=== PATIENT | female | born 1960 | race Caucasian/White ===

== ENCOUNTER 2016-11-19 06:35 | Emergency (ER) | payer BC ==
[~2016-11-19] VITALS: Ht 152.4 cm; Wt 63.8 kg
[2016-11-19 06:41] VITALS: TEMP 36.7; Ht 152.4 cm; Wt 63.8 kg
[2016-11-19] MEDS ORDERED: ONDANSETRON 8 MG/54 ML D5W IV STA (06:53)
[2016-11-19] MEDS ORDERED: PROCHLORPERAZINE 5 MG/ML 2 ML VIAL IV STA (06:53)
[2016-11-19] MEDS ORDERED: SODIUM CHLORIDE 0.9% 1000ML 1,000 ML IV STA ×2 (06:53)
[2016-11-19] MEDS ORDERED: KETOROLAC TROMETHAMINE 30 MG/ML VIAL IV STA (06:53)
[2016-11-19] MEDS ORDERED: MoRPHine SULFATE 10 MG/ML CARP/VIAL IV PRN (07:00)
[2016-11-19] MEDS ORDERED: DEXAMETHASONE SOD INJ 10 MG/ML VIAL IV ONE (07:00)
[2016-11-19] MEDS ORDERED: MoRPHine SULFATE 2 MG/ML CARP ONE (07:06)
[2016-11-19] MEDS ORDERED: MoRPHine SULFATE 4 MG/ML 1 ML CARP\\VIAL ONE (07:06)
[2016-11-19 07:43] LABS: BASO % 0.2 %; BASO ABS # 0.03 K/uL (0-0.2); COMPLETE YES; EOS % 0.1 %; HEMATOCRIT 41.9 % (37-47); IG% 0.5 %; LYMPH % 26.2 %; LYMPH ABS # 3.67 K/uL (1.2-3.4); MEAN CELL VOLUME 89.3 fL (80-100); MEAN CORPUSCULAR HEMOGLOBIN 31.8 pg (25-34); MEAN CORPUSCULAR HGB CONC 35.6 g/dl (32-36); MEAN PLATELET VOLUME 9.9 fL (7.4-10.4); MONO % 5.6 %; NEUT % 67.4 %; PLATELET COUNT 371 K/uL (130-400); RED BLOOD COUNT 4.69 M/uL (4.2-5.4)
[2016-11-19 07:51] VITALS: O2SAT 94
[2016-11-19 08:11] LABS: BUN/CREATININE RATIO 16.3 (10-20); C-REACTIVE PROTEIN 0.4 mg/dl (0-0.29); CALCIUM 9.4 mg/dl (8.5-10.1); CREATININE 0.97 mg/dl (0.60-1.20); POTASSIUM 3.5 mmol/L (3.5-5.1)
[2016-11-19 08:32] LABS: LYME DISEASE AB IGG NEG (NEG); LYME DISEASE AB IGM NEG (NEG)
[2016-11-19] MEDS ORDERED: FRCT/ PO (10:22)
[2016-11-19] MEDS ORDERED: ONDA4TAB10 SL (10:25)
--- NOTE | 2016-11-19 10:26 | EMERGENCY ROOM VISIT NOTE ---
History Report prepared by Eugenia: Marilia Sims Under the Supervision of: Dr. Cj Dorantes D.O. First contact with patient: 06:44 Chief Complaint: HEADACHE Stated Complaint: SEVERE HEADACHE AND VOMITING History of Present Illness The patient is a 56 year old female who presents to the Emergency Room with complaints of persistent frontal headache that started one week ago. She is also experiencing some photophobia, neck pain, and sneezing but denies urinary symptoms and weakness. The patient's states that she was seen in the ED 4 days ago for the same symptoms. She received a CT and MRI, which were both inconclusive. The MRI showed a potential subarachnoid hemorrhage. The patient was admitted to the hospital then transferred to [facility]. She was discharged from [facility] 2 days ago after resolution of her symptoms. Per the patient's , the staff at [facility] re-read her MRI and performed a lumbar puncture, but nothing conclusive was found. The patient was seen by the neurologist and neurosurgeons at [facility], but her symptoms resolved so they sent her home. The patient's states that the patient's symptoms seemed to improve with fluids, steroids, and pain medicine as needed. The patient was sent home with steroids and antacids. The patient's states that once they got home, the headache returned almost immediately. This morning, the patient began to experience nausea and vomiting again so they decided to come back into the ED. The patient took Tylenol this morning but she vomited after taking it. The patient's states that they have gas heating in their house and that they just got new rugs one month ago. Source of History: patient Onset: one week ago Position: head (frontal) Quality: other (headache) Timing: other (persistent) Associated Symptoms: + neck pain, No urinary symptoms, No weakness Note: photophobia, sneezing Review of Systems See HPI for pertinent positives & negatives. A total of 10 systems reviewed and were otherwise negative. Past Medical & Surgical Medical Problems: (1) A-fib (2) Dyslipidemia (3) Headache Family History FH: heart disease Social History Smoking Status: Never Smoker Drug Use: none Marital Status: Housing Status: lives with family Current/Historical Medications Scheduled Acetamin/Butalbital/Caffeine (Fioricet), 1 TAB PO Q6 Ondasetron Odt (Zofran Odt), 4 MG SL Q6H Allergies Coded Allergies: Amoxicillin (Verified Allergy, Unknown, RASH, 11/19/16) Physical Exam Vital Signs Date Time Temp Pulse Resp B/P Pulse Ox O2 Delivery O2 Flow Rate FiO2 11/19/16 10:27 60 18 119/78 94 Room Air 11/19/16 09:08 64 18 120/80 96 Room Air 11/19/16 07:53 67 11/19/16 07:51 94 Room Air 11/19/16 07:51 69 20 145/92 94 Room Air 11/19/16 06:41 36.7 93 20 161/85 99 Room Air Physical Exam VITAL SIGNS: were reviewed as above. GENERAL:Non-toxic in appearance. SKIN: Warm dry and pink. HEAD: Normocephalic and atraumatic. OROPHARYNX: Is clear and moist NECK: Supple without lymphadenopathy or meningismus. LUNGS: clear. HEART: Regular rate and rhythm. ABDOMEN: Soft and nontender. EXTREMITIES: Warm and well perfused. NEUROLOGICALLY: Awake alert and oriented without focal deficit. Cranial nerves 2 -12 are intact. There is no pronator drift. Cerebellar testing is within normal limits. There is no nystagmus. There is no facial droop. Speech is clear. Vision is grossly normal. MUSCULOSKELETAL: Good muscle tone. No evidence of trauma. Medical Decision & Procedures Laboratory Results 11/19/16 07:30 Red Blood Count 4.69, Mean Corpuscular Volume 89.3, Mean Corpuscular Hemoglobin 31.8, Mean Corpuscular Hemoglobin Concent 35.6, Mean Platelet Volume 9.9, Neutrophils (%) (Auto) 67.4, Lymphocytes (%) (Auto) 26.2, Monocytes (%) (Auto) 5.6, Eosinophils (%) (Auto) 0.1, Basophils (%) (Auto) 0.2, Neutrophils # (Auto) 9.43, Lymphocytes # (Auto) 3.67, Monocytes # (Auto) 0.78, Eosinophils # (Auto) 0.02, Basophils # (Auto) 0.03 11/19/16 07:30 Test 11/19/16 07:20 11/19/16 07:30 Lyme Disease IgG Antibody NEG (NEG) Lyme Disease IgM Antibody NEG (NEG) Influenza Type A Antigen Neg for Influ A (NEG) Influenza Type B Antigen Neg for Influ B (NEG) White Blood Count 14.00 K/uL (4.8-10.8) Red Blood Count 4.69 M/uL (4.2-5.4) Hemoglobin 14.9 g/dL (12.0-16.0) Hematocrit 41.9 % (37-47) Mean Corpuscular Volume 89.3 fL (80-100) Mean Corpuscular Hemoglobin 31.8 pg (25-34) Mean Corpuscular Hemoglobin Concent 35.6 g/dl (32-36) Platelet Count 371 K/uL (130-400) Mean Platelet Volume 9.9 fL (7.4-10.4) Neutrophils (%) (Auto) 67.4 % Lymphocytes (%) (Auto) 26.2 % Monocytes (%) (Auto) 5.6 % Eosinophils (%) (Auto) 0.1 % Basophils (%) (Auto) 0.2 % Neutrophils # (Auto) 9.43 K/uL (1.4-6.5) Lymphocytes # (Auto) 3.67 K/uL (1.2-3.4) Monocytes # (Auto) 0.78 K/uL (0.11-0.59) Eosinophils # (Auto) 0.02 K/uL (0-0.5) Basophils # (Auto) 0.03 K/uL (0-0.2) RDW Standard Deviation 42.7 fL (36.4-46.3) RDW Coefficient of Variation 13.2 % (11.5-14.5) Immature Granulocyte % (Auto) 0.5 % Immature Granulocyte # (Auto) 0.07 K/uL (0.00-0.02) Erythrocyte Sedimentation Rate 35 mm/hr (0-21) Carboxyhemoglobin 0.0 % THgb Anion Gap 14.0 mmol/L (3-11) Est Creatinine Clear Calc Drug Dose 54.6 ml/min Estimated GFR () 76.2 Estimated GFR (Non- 65.8 BUN/Creatinine Ratio 16.3 (10-20) Calcium Level 9.4 mg/dl (8.5-10.1) Total Bilirubin 0.7 mg/dl (0.2-1) Direct Bilirubin 0.2 mg/dl (0-0.2) Aspartate Amino Transf (AST/SGOT) 25 U/L (15-37) Alanine Aminotransferase (ALT/SGPT) 49 U/L (12-78) Alkaline Phosphatase 74 U/L (45-117) C-Reactive Protein 0.40 mg/dl (0-0.29) Total Protein 8.8 gm/dl (6.4-8.2) Albumin 4.2 gm/dl (3.4-5.0) Lipase 196 U/L (73-393) Laboratory results as stated above per my review. Medications Administered Medications (Trade) Dose Ordered Sig/Leelee Route Start Time Stop Time Status Last Admin Dose Admin Sodium Chloride (Nss 1000ml) 1,000 ml @ 999 mls/hr Q1H1M STAT IV 11/19/16 06:53 11/19/16 07:53 DC 11/19/16 07:32 999 MLS/HR Ketorolac Tromethamine (Toradol Inj) 30 mg NOW STAT IV 11/19/16 06:53 11/19/16 06:59 DC 11/19/16 07:35 30 MG Morphine Sulfate 6 mg 6 mg Q1H PRN IV 11/19/16 07:00 12/03/16 06:59 11/19/16 07:47 6 MG Sodium Chloride (Nss 1000ml) 1,000 ml @ 999 mls/hr Q1H1M STAT IV 11/19/16 06:53 11/19/16 07:53 DC 11/19/16 07:33 999 MLS/HR Ondansetron HCl (Zofran 8mg Iv) 8 mg NOW STAT IV 11/19/16 06:53 11/19/16 06:59 DC 11/19/16 07:33 8 MG Prochlorperazine Edisylate (Compazine Inj) 10 mg NOW STAT IV 11/19/16 06:53 11/19/16 06:59 DC 11/19/16 07:43 10 MG Dexamethasone Sodium Phosphate (Decadron Inj) 10 mg NOW ONCE IV 11/19/16 07:00 11/19/16 07:01 DC 11/19/16 07:35 10 MG ED Course 0648: Previous medical records were reviewed. The patient was evaluated in room A2. A complete history and physical examination was performed. 0653: Ordered Compazine 10 mg IV, Zofran 8 mg IV, Sodium Chloride 1000 ml @ 999 mls/hr IV, Toradol 30 mg IV, Sodium Chloride 1000 ml @ 999 mls/hr IV 0700: Ordered Decadron 10 mg IV, Morphine Sulfate 4 mg IV 1010: On reevaluation, the patient is doing well. I discussed the results and findings with the patient. She verbalized agreement of the treatment plan. She was discharged home. Medical Decision Differential includes migraine headache, meningitis, sinusitis, CO exposure, ICH , SAH, infection, tumor, headache, sinus thrombosis, arterial dissection. This is a 56-year-old female who presents to the ED with a chief complaint of a headache as well as nausea and vomiting. The patient states that her symptoms started a week ago. She was seen here on . She was admitted to the hospital on and then transferred to [facility] because of concerns for possible subarachnoid bleed that was seen on an MRI was done here. She was evaluated by neurology here. The patient was seen at the [facility] overnight. Her symptoms did improve with medications. A lumbar puncture there did not reveal any findings to suggest subarachnoid hemorrhage. The patient was discharged on Saturday around 5 PM. Her symptoms seem to have improved somewhat Saturday evening but yesterday she began having headaches as well as nausea and vomiting. The patient seemed a little bit better in the evening but her headache returned at 5 AM this morning. She complains of mostly a frontal and anterior headache. She has associated nausea and vomiting and dry heaves. Denies any recent illness or fevers. Her physical exam and neurologic exam was unremarkable. She denies any photosensitivity. She has no nuchal rigidity. White blood cell count was 14. Sedimentation rate was 35. Complete metabolic panel was unremarkable. Lyme to these test was negative. Flu swab was negative. Carboxyhemoglobin was negative. The patient was treated with IV fluids, IV Toradol, IV morphine, IV Zofran, IV Compazine and IV Decadron. Her symptoms did improve. She is felt to be stable for discharge. She was prescribed Zofran and Fioricet. Impression Primary Impression: Headache Scribe Attestation The scribe's documentation has been prepared under my direction and personally reviewed by me in its entirety. I confirm that the note above accurately reflects all work, treatment, procedures, and medical decision making performed by me. Departure Information Dispostion Home / Self-Care Prescriptions Ondasetron Odt (ZOFRAN ODT) 4 Mg Tab 4 MG SL Q6H for Nausea, #20 TAB Prov: Cj Dorantes D.O. 11/19/16 Acetamin/Butalbital/Caffeine (FIORICET) 1 Ea Tab 1 TAB PO Q6 for Headache, #20 TAB Prov: Cj Dorantes D.O. 11/19/16 Referrals No Doctor, Assigned (PCP) Forms HOME CARE DOCUMENTATION FORM, IMPORTANT VISIT INFORMATION Patient Instructions A Signature Page, Headache Pain, [facility] Additional Instructions Zofran: Allow one tablet to dissolve under the tongue every 6 hours as needed for nausea or vomiting. Fioricet as prescribed for pain. No driving within 6 hours of use. Continue medications prescribed by your doctors. Follow-up with your doctor for further care and evaluation in 1-2 days. Return to the emergency department for worsening or new symptoms or any concerns. You have been examined and treated today on an emergency basis only. This is not a substitute for, or an effort to provide, complete comprehensive medical care. It is impossible to recognize and treat all injuries or illnesses in a single emergency department visit. It is therefore important that you follow up closely with your doctor. Call as soon as possible for an appointment.
[2016-11-19 10:39] VITALS: BP 119/78; PULSE 60; O2SAT 94
== END 2016-11-19 10:40 | disposition home or self-care (01) ==
LOC: C.EDB 06:36 → C.EDA 10:40
DX: R51 Headache (principal); I48.91 Unspecified atrial fibrillation; E78.5 Hyperlipidemia, unspecified; Z82.49 Family history of ischemic heart disease and other diseases of the circulatory system

== ENCOUNTER 2016-11-22 12:09 | Emergency (ER) | payer BC ==
[~2016-11-22] VITALS: Ht 152.4 cm; Wt 62.9 kg
[~2016-11-22 12:09] MED LIST: FRCT/ PO; ONDA4TAB10 SL
[2016-11-22 12:14] VITALS: TEMP 37; Ht 152.4 cm; Wt 62.9 kg
[2016-11-22] MEDS ORDERED: SODIUM CHLORIDE 0.9% 1000ML 1,000 ML IV STA ×2 (12:34)
[2016-11-22] MEDS ORDERED: PROMETHAZINE HCL INJ 25 MG in SODIUM CHLORIDE 0.9% 50ML 50 ML IV STA (12:34)
[2016-11-22] MEDS ORDERED: MoRPHine SULFATE 4 MG/ML 1 ML CARP\\VIAL IV PRN (12:45)
[2016-11-22 12:54] LABS: BASO % 0.1 %; BASO ABS # 0.02 K/uL (0-0.2); COMPLETE YES; IG% 0.5 %; LYMPH % 7.8 %; LYMPH ABS # 1.15 K/uL (1.2-3.4); MEAN CELL VOLUME 87.3 fL (80-100); MEAN CORPUSCULAR HEMOGLOBIN 31.6 pg (25-34); MEAN CORPUSCULAR HGB CONC 36.2 g/dl (32-36); MEAN PLATELET VOLUME 9.9 fL (7.4-10.4); MONO % 5.7 %; NEUT % 85.9 %; PLATELET COUNT 318 K/uL (130-400); RED BLOOD COUNT 4.81 M/uL (4.2-5.4); WHITE BLOOD COUNT 14.81 K/uL (4.8-10.8)
--- NOTE | 2016-11-22 12:57 | EMERGENCY ROOM VISIT NOTE ---
History Report prepared by Eugenia: Arcenio Johnson Under the Supervision of: Dr. Aj Kolb D.O. First contact with patient: 12:17 Chief Complaint: VOMITING Stated Complaint: VOMITING X15 HOURS Nursing Triage Summary: Triage note: pt reports nausea, vomitting, headache x 1 week. History of Present Illness The patient is a 56 year old female who presents to the Emergency Room with complaints of a persistent illness that started 10 days ago. Per the patient's , the patient got really drunk 10 days ago, and started vomiting, and in the process got a major headache. The patient had typical hangover symptoms the next day, including nausea. That night, the patient had another major headache, which triggered vomiting. The next day, she was woozy all day, and then at night , her symptoms worsened, so she came to the ED here. The patient got an IV with pain medications and anti-nausea medications. She had CT scans which were negative. The patient was admitted here, and had a major headache attack, so the next day she was transferred to [facility]. The patient saw a neurosurgeon there, and the neurosurgeon saw nothing major on her MRI. Her lumbar puncture tested negative. She seemed fine when released from the hospital. However, that night she vomited more. The patient came here Saturday morning, and was then sent home. She was put on migraine medications, including magnesium and an anti-depressant. The patient's says that the patient has been bed-ridden this entire time. The patient started having another headache last night and it has persisted into today. The patient denies any chest pain, recent trauma, or headache history. She is not on any other daily medications. Source of History: patient, spouse/significant other Onset: 10 days ago Position: other (global - illness) Symptom Intensity: bed-ridden Timing: other (persistent) Associated Symptoms: + headache, + nausea, + vomiting, No chest pain Note: Associated symptoms: Woozy. Review of Systems See HPI for pertinent positives & negatives. A total of 10 systems reviewed and were otherwise negative. Past Medical & Surgical Medical Problems: (1) A-fib (2) Dyslipidemia (3) Headache Family History FH: heart disease Social History Smoking Status: Never Smoker Drug Use: none Marital Status: Housing Status: lives with family Current/Historical Medications Scheduled Acetamin/Butalbital/Caffeine (Fioricet), 1 TAB PO Q6 Ondasetron Odt (Zofran Odt), 4 MG SL Q6H Allergies Coded Allergies: Amoxicillin (Verified Allergy, Unknown, RASH, 11/19/16) Physical Exam Vital Signs Date Time Temp Pulse Resp B/P Pulse Ox O2 Delivery O2 Flow Rate FiO2 11/22/16 17:05 84 16 169/105 96 Room Air 11/22/16 15:45 72 19 182/103 94 Room Air 11/22/16 13:54 73 18 173/104 97 Room Air 11/22/16 13:11 70 11/22/16 12:14 37.0 77 18 164/98 98 Room Air Physical Exam GENERAL: Patient is awake, alert, very anxious and uncomfortable appearing. EYES: The conjunctivae are clear. The pupils are round and reactive. EARS, NOSE, MOUTH AND THROAT: The nose is without any evidence of any deformity. Mucous membranes are moist tongue is midline NECK: The neck is nontender and supple. RESPIRATORY: Normal respiratory effort is noted there is no evidence of wheezing rhonchi or rales CARDIOVASCULAR: Regular rate and rhythm noted there no murmurs rubs or gallops normal S1 normal S2 GASTROINTESTINAL: The abdomen is soft. Bowel sounds are present in all quadrants. Abdomen is nontender MUSCULOSKELETAL/EXTREMITIES: There is no evidence of gross deformity full range of motion is noted in the hips and shoulders SKIN: There is no obvious evidence of any rash. There are no petechiae, pallor or cyanosis noted. NEUROLOGIC: Patient is awake alert and oriented x3 strength is symmetric patellar reflexes are 2+ bilaterally Medical Decision & Procedures ER Provider Diagnostic Interpretation: X-ray results as stated below per interpretation by me and the radiologist. CHEST ONE VIEW PORTABLE CLINICAL HISTORY: ABDOMINAL PAIN/GI nausea COMPARISON STUDY: 11/06/2016 FINDINGS: The bones soft tissues and hemidiaphragms are normal. The cardiomediastinal silhouette is normal. The lungs are clear. The pulmonary vasculature is normal. IMPRESSION: Negative chest. Electronically signed by: Sharan Addison M.D. 11/22/2016 1:00 PM Laboratory Results 11/22/16 12:40 Red Blood Count 4.81, Mean Corpuscular Volume 87.3, Mean Corpuscular Hemoglobin 31.6, Mean Corpuscular Hemoglobin Concent 36.2, Mean Platelet Volume 9.9, Neutrophils (%) (Auto) 85.9, Lymphocytes (%) (Auto) 7.8, Monocytes (%) (Auto) 5.7, Eosinophils (%) (Auto) 0.0, Basophils (%) (Auto) 0.1, Neutrophils # (Auto) 12.72, Lymphocytes # (Auto) 1.15, Monocytes # (Auto) 0.85, Eosinophils # (Auto) 0.00, Basophils # (Auto) 0.02 11/22/16 12:40 Test 11/22/16 12:40 White Blood Count 14.81 K/uL (4.8-10.8) Red Blood Count 4.81 M/uL (4.2-5.4) Hemoglobin 15.2 g/dL (12.0-16.0) Hematocrit 42.0 % (37-47) Mean Corpuscular Volume 87.3 fL (80-100) Mean Corpuscular Hemoglobin 31.6 pg (25-34) Mean Corpuscular Hemoglobin Concent 36.2 g/dl (32-36) Platelet Count 318 K/uL (130-400) Mean Platelet Volume 9.9 fL (7.4-10.4) Neutrophils (%) (Auto) 85.9 % Lymphocytes (%) (Auto) 7.8 % Monocytes (%) (Auto) 5.7 % Eosinophils (%) (Auto) 0.0 % Basophils (%) (Auto) 0.1 % Neutrophils # (Auto) 12.72 K/uL (1.4-6.5) Lymphocytes # (Auto) 1.15 K/uL (1.2-3.4) Monocytes # (Auto) 0.85 K/uL (0.11-0.59) Eosinophils # (Auto) 0.00 K/uL (0-0.5) Basophils # (Auto) 0.02 K/uL (0-0.2) RDW Standard Deviation 41.4 fL (36.4-46.3) RDW Coefficient of Variation 12.9 % (11.5-14.5) Immature Granulocyte % (Auto) 0.5 % Immature Granulocyte # (Auto) 0.07 K/uL (0.00-0.02) Erythrocyte Sedimentation Rate 57 mm/hr (0-21) Prothrombin Time 10.6 SECONDS (9.0-12.0) Prothromb Time International Ratio 1.0 (0.9-1.1) Activated Partial Thromboplast Time 23.8 SECONDS (21.0-31.0) Partial Thromboplastin Ratio 0.9 Anion Gap 13.0 mmol/L (3-11) Est Creatinine Clear Calc Drug Dose 71.1 ml/min Estimated GFR () 105.7 Estimated GFR (Non- 91.2 BUN/Creatinine Ratio 18.0 (10-20) Calcium Level 9.5 mg/dl (8.5-10.1) Magnesium Level 2.1 mg/dl (1.8-2.4) Total Bilirubin 0.7 mg/dl (0.2-1) Direct Bilirubin 0.1 mg/dl (0-0.2) Aspartate Amino Transf (AST/SGOT) 17 U/L (15-37) Alanine Aminotransferase (ALT/SGPT) 30 U/L (12-78) Alkaline Phosphatase 88 U/L (45-117) Total Creatine Kinase 72 U/L (26-192) Creatine Kinase MB 0.7 ng/ml (0.5-3.6) Creatine Kinase MB Ratio 1.0 (0-3.0) Troponin I 0.038 ng/ml (0-0.045) C-Reactive Protein 3.52 mg/dl (0-0.29) Total Protein 9.1 gm/dl (6.4-8.2) Albumin 4.1 gm/dl (3.4-5.0) Lipase 150 U/L (73-393) Human Chorionic Gonadotropin, Qual NEG (NEG) Laboratory results per my review. Medications Administered Medications (Trade) Dose Ordered Sig/Leelee Route Start Time Stop Time Status Last Admin Dose Admin Sodium Chloride 1,000 ml @ 999 mls/hr Q1H1M STAT IV 11/22/16 12:34 11/22/16 13:34 DC 11/22/16 12:45 999 MLS/HR Sodium Chloride 1,000 ml @ 200 mls/hr Q5H STAT IV 11/22/16 12:34 11/22/16 17:33 DC 11/22/16 12:34 200 MLS/HR Promethazine HCl/ Sodium Chloride (Phenergan Inj/ Nss 50ml) 51 ml @ 204 mls/hr NOW STAT IV 11/22/16 12:34 1/5/17 12:48 DC 11/22/16 12:45 204 MLS/HR Morphine Sulfate (MoRPHine SULFATE INJ) 4 mg Q15M PRN IV 11/22/16 12:45 12/06/16 12:44 11/22/16 12:57 4 MG Ondansetron HCl (Zofran Inj) 4 mg STK-MED ONCE .ROUTE 11/22/16 14:51 11/22/16 14:52 DC 11/22/16 14:51 4 MG Labetalol HCl 20 mg 20 mg NOW STAT IV 11/22/16 16:52 11/22/16 16:54 DC 11/22/16 17:17 20 MG Levetiracetam/ Dextrose (Keppra Iv/D5 100ml) 110 ml @ 440 mls/hr ONE ONCE IV 11/22/16 17:00 11/22/16 17:14 DC 11/22/16 17:28 440 MLS/HR ECG Indication: vomiting Rate (beats per minute): 74 Rhythm: normal sinus Findings: no ectopy, other (diffuse ST and T wave abnormalities noted) Change: no significant change (from November 15 2016) ED Course 1231: The patient was evaluated in room B10. A complete history and physical examination were performed. 1234: Ordered Promethazine HCl 25 mg/Sodium Chloride 51 ml @ 204 mls/hr IV, NSS 1000 ml @ 200 mls/hr IV, NSS 1000 ml @ 999 mls/hr IV. 1245: Ordered Morphine Sulfate Inj 4 mg IV PRN. 1345: I discussed the patient with Mine Frye Neurology - she will talk to Dr. Oneal and will call us back. 1351: I discussed the patient with Dr. Kimmy Frye Neurology. Medical Decision Differential diagnosis: Etiologies such as migraine headache, meningitis, sinusitis, CO exposure, ICH, SAH, infection, tumor, headache, sinus thrombosis, arterial dissection, as well as others were entertained. Nursing notes reviewed. The patient's previous electronic medical records were also reviewed. The patient is a 56-year-old female who presented to the emergency department with a severe headache syndrome. The patient had a severe headache which was intermittent over the last few weeks. She was seen in our facility initially and found have an abnormality on her MRI as well as her CT which required inpatient management. She was then transferred to [facility]. At that time she was evaluated by neurosurgery and had a spinal tap which was felt to be traumatic in nature although there were many red blood cells in the CSF. The patient was feeling better and was discharged home. She return to our facility recently and was treated successfully and sent home again. Her headache returned last evening. She was having very severe pain at this time it was treated with IV fluids IV pain medicine and IV antiemetics. On subsequent reevaluation she was only minimally improved. I discussed her case with our neurologist who evaluated the patient while she was at our facility. He recommended a repeat of the MRI. MRI did show worsening symptoms as well as some subarachnoid bleeding. I discussed this case with the neurosurgical group at [facility] who was familiar with the patient from her recent transfer to their facility. 1700 Neurosurgical services called at [facility] 1745 Dr Ann returned call from [facility] neurosurgical services. No ICU level beds available 1750 Neurosurgical services called at [facility] [address] Green. Agrees with transfer to [facility]. I also discussed the case with the attending in the emergency department he is aware of the transfer and will accept the patient directly to the ER. Consults Time Called: 1343 Consulting Physician: Mine Hernandez Returned Call: 1344 I discussed the patient with Mine Hernandez - she will talk to Dr. Oneal and will call us back. Additional Consults: Time Called: -- Consulted Physician: Dr. Kimmy Hernandez Returned Call: 1351 Additional Comments: I discussed the patient with Dr. Kimmy Frye Neurology. Time Called: 1630 Consulted Physician: Alexey Returned Call: [phone] Additional Comments: Recommends transfer to [facility] Impression Primary Impression: Subarachnoid hemorrhage Additional Impressions: Headache, Nausea, Vomiting, PRES (posterior reversible encephalopathy syndrome) Critical Care I have personally spent greater than 100 minutes of critical care time in the direct management of this patient. This includes bedside care, interpretation of diagnostic studies, and testing, discussion with consultants, patient, and family members, and other required patient management activities. This 100 minutes is in excess of all separately billable procedures. Scribe Attestation The scribe's documentation has been prepared under my direction and personally reviewed by me in its entirety. I confirm that the note above accurately reflects all work, treatment, procedures, and medical decision making performed by me. Departure Information Dispostion Still a Patient (sign-out to Dr. Little) Referrals Nando Miles M.D.(SANJAY) (PCP) Patient Instructions A Signature Page, My [facility]
--- NOTE | 2016-11-22 13:02 | DIAGNOSTIC IMAGING REPORT ---
CHEST ONE VIEW PORTABLE CLINICAL HISTORY: ABDOMINAL PAIN/GI nausea COMPARISON STUDY: 11/06/2016 FINDINGS: The bones soft tissues and hemidiaphragms are normal. The cardiomediastinal silhouette is normal. The lungs are clear. The pulmonary vasculature is normal. IMPRESSION: Negative chest. Electronically signed by: Sharan Addison M.D. 11/22/2016 1:00 PM
[2016-11-22 13:04] LABS: PARTIAL THROMBOPLASTIN RATIO 0.9; PROTHROMBIN TIME (PATIENT) 10.6 SECONDS (9.0-12.0)
[2016-11-22 13:16] LABS: CALCIUM 9.5 mg/dl (8.5-10.1); CREATININE 0.74 mg/dl (0.60-1.20); MAGNESIUM 2.1 mg/dl (1.8-2.4); POTASSIUM 3.4 mmol/L (3.5-5.1)
[2016-11-22 13:19] LABS: PREG INTERNAL NEGATIVE QC NEG CLEAR BACKGROUND; PREG INTERNAL POSITIVE QC POS CONTROL LINE
[2016-11-22] MEDS ORDERED: ONDANSETRON INJ 2 MG/ML 2 ML VIAL ONE (14:51)
--- NOTE | 2016-11-22 16:20 | DIAGNOSTIC IMAGING REPORT ---
MRI OF THE BRAIN WITHOUT AND WITH IV CONTRAST CLINICAL HISTORY: Headache and vomiting. COMPARISON STUDY: MRI and CT of the head November 15, 2016. TECHNIQUE: Utilizing a 1.5 Soo magnet and dedicated coil, multiplanar, multiecho imaging of the brain was performed pre and postcontrast administration. IV administration of 6 mL of Gadavist contrast was uneventful. FINDINGS: There are no areas of restricted diffusion. Scattered foci of sulcal hyperintensity, most evident overlying the left frontal convexity suggest subarachnoid hemorrhage. This has slightly increased in amount since exam of November 15, 2016. Extensive cortical and subcortical T2 hyperintensity is noted within the left frontal lobe, the bilateral parietal lobes and bilateral occipital lobes. This has significantly progressed since MRI of November 15, 2016. Extensive multifocal cortical and subcortical enhancement is noted on the postcontrast images. Inherent T1 sulcal hyperintensity suggests subarachnoid hemorrhage overlying the left frontal lobe. The ventricular system is stable. The basilar cisterns are patent. Flow-voids for the major intracranial vessels are present. There is a suspected prominent perivascular space within the right basal ganglia. Calvarial signal is maintained. IMPRESSION: Significant progression of cortical and subcortical edema within the bilateral occipital lobes, bilateral parietal lobes and left frontal lobe since MRI of November 15, 2016. Extensive associated cortical and subcortical patchy enhancement. In addition, a small amount of subarachnoid hemorrhage has increased since prior MRI. The findings are nonspecific but favor posterior reversible encephalopathy syndrome (PRES). Other etiologies such as encephalitis and meningitis could appear similar but are considered less likely. Electronically signed by: Kaushal Lopez M.D. 11/22/2016 4:18 PM Dictated Date/Time: 11/22/2016 3:48 PM
[2016-11-22] MEDS ORDERED: LABETALOL HCL IV 5 MG/ML 20ML IV STA (16:52)
[2016-11-22] MEDS ORDERED: LEVETIRACETAM IV 1,000 MG in DEXTROSE 5% 100ML 100 ML IV ONE (17:00)
[2016-11-22 20:00] VITALS: BP 154/94; PULSE 75; O2SAT 95
== END 2016-11-22 20:00 | disposition short-term general hospital (02) ==
LOC: C.EDB 12:11
DX: I60.9 Nontraumatic subarachnoid hemorrhage, unspecified (principal); R11.2 Nausea with vomiting, unspecified; I67.83 Posterior reversible encephalopathy syndrome; I48.91 Unspecified atrial fibrillation; E78.5 Hyperlipidemia, unspecified

== ENCOUNTER → 2017-04-04 | Outpatient (CLI) | payer BC | END | disposition home or self-care (01) | LOC: C.PAPS 10:48 | PROVIDERS: ATTEND Obstetrics & Gynecology | DX: Z01.419 Encounter for gynecological examination (general) (routine) without abnormal findings (principal); N95.8 Other specified menopausal and perimenopausal disorders ==

== ENCOUNTER → 2017-11-22 | Outpatient (CLI) | payer OTHER ==
--- NOTE | 2017-11-25 07:35 | MAMMOGRAPHY REPORT ---
BILATERAL DIGITAL SCREENING MAMMOGRAM TOMOSYNTHESIS WITH CAD: 11/22/2017 CLINICAL HISTORY: Routine screening. Patient has no complaints. TECHNIQUE: Breast tomosynthesis in addition to standard 2D mammography was performed. Current study was also evaluated with a Computer Aided Detection (CAD) system. COMPARISON: Comparison is made to exams dated: 07/09/2016 mammogram, 07/06/2015 mammogram, 07/05/2014 m ammogram, 07/03/2013 mammogram, 06/30/2012 mammogram, and 06/22/2011 mammogram - [facility]ter. BREAST COMPOSITION: There are scattered areas of fibroglandular density in both breasts. FINDINGS: There is a 7 mm focal asymmetry within the right upper outer quadrant posteriorly, for whi ch spot compression tomosynthesis views and possible breast ultrasound are recommended for further ev aluation. The remainder of both breasts are stable compared to prior exams, without suspicious masses, calcific ations, or areas of architectural distortion noted. Fluctuating circumscribed masses are again noted bilaterally, which likely represent fluctuating cysts. Scattered bilateral benign-appearing calcifi cations are also stable. IMPRESSION: ACR BI-RADS CATEGORY 0: INCOMPLETE EVALUATION: NEED ADDITIONAL IMAGING EVALUATION Right breast focal asymmetry, for which additional imaging evaluation is recommended. The patient wi ll be called to schedule an appointment. Approximately 10% of breast cancers are not detected with mammography. A negative mammographic report should not delay biopsy if a clinically suggestive mass is present. Jocelyne Barrientos M.D. /:11/22/2017 15:28:45 Ignition Specialist: Celeste TAYLOR(R)(M), [facility] letter sent: Addl Imaging 0 BI-RADS Code: ACR BI-RADS Category 0: Incomplete Evaluation: Need Additional Imaging Evaluation
== END | disposition home or self-care (01) ==
LOC: C.MAMM 14:32
PROVIDERS: ATTEND Obstetrics & Gynecology
DX: Z12.31 Encounter for screening mammogram for malignant neoplasm of breast (principal); N64.89 Other specified disorders of breast

== ENCOUNTER → 2017-12-02 | Outpatient (CLI) | payer OTHER ==
--- NOTE | 2017-12-02 14:48 | MAMMOGRAPHY REPORT ---
UNILATERAL RIGHT DIGITAL DIAGNOSTIC MAMMOGRAM TOMOSYNTHESIS AND TARGETED RIGHT ULTRASOUND: 12/02/2017 CLINICAL HISTORY: 57-year-old woman with fluctuating masses in the breasts found to have a new mass v ersus focal asymmetry measuring 7 mm in the upper outer posterior right breast. Patient presents for diagnostic workup. TECHNIQUE: Spot compression right CC and MLO 2-D and tomosynthesis images were obtained. After targe anton ultrasound in the right breast, additional right CC and MLO full field tomosynthesis images were obtained after placement of a skin BB marker. COMPARISON: Comparison is made to exams dated: 11/22/2017 mammogram, 07/09/2016 mammogram, 07/06/2015 ma mmogram, 07/05/2014 mammogram, 07/03/2013 mammogram, and 06/22/2011 mammogram - [facility]. BREAST COMPOSITION: There are scattered areas of fibroglandular density in the right breast. FINDINGS: The additional spot compression 2-D and tomosynthesis views of the right breast demonstrat e a persistent round 6 mm partially circumscribed and obscured masses in the upper outer posterior ri ght breast. No evidence of associated architectural distortion or microcalcification. There are oth er partially circumscribed and obscured masses scattered throughout the remainder of the visualized r ight breast. Overall, no focal area of distortion or a suspicious spiculated or irregular mass is id entified. Further characterization with ultrasound was performed. Targeted ultrasound was performed in the right upper outer quadrant. In the 9:00 axis, 8 cm from the nipple, there is a lobulated predominantly anechoic cystic appearing mass measuring 4.2 x 4.1 x 7.0 mm. However, posterior acoustic enhancement is not appreciated although this still most likely repre sents a cyst. There is a fusiform hypoechoic solid appearing mass in the 9:30 right breast, 5 cm fro m the nipple, measuring 4.4 x 2.3 x 6.3 mm. Review of prior available breast ultrasounds does not de finitely demonstrate this lesion to confirm long-term stability. There is normal tissue versus a cys tic appearing mass with posterior acoustic enhancement, in the right 9:30 breast, 3 cm from the nippl e that effaces in the radial plane. There is a multilobulated anechoic cluster of cysts in the 11:00 right breast, 1 cm from the nipple, measuring approximately 6.4 x 5.3 x 12.5 mm. No definite suspic ious solid mass is seen. A skin BB was placed overlying the suspected cyst in the 9:00 right breast, as this was thought to correlate with the mammographic focal asymmetry versus mass and repeat full f ield right CC and MLO tomosynthesis images were performed. The additional right CC and MLO tomosynthesis images demonstrate alignment of the BB marker with the partially circumscribed mammographic mass in question, suggesting it correlates with the suspected cy st seen in the 9:00 axes on ultrasound. Given that it does not meet all the criteria for a benign si mple cyst and does not definitely demonstrate posterior acoustic enhancement, a short interval follow -up targeted right breast ultrasound and repeat tomosynthesis mammograms is recommended to ensure sta bility in 6 months, given that this was a new mammographic mass. Additional ultrasound should be per formed in the 9:30 right breast to reassess the benign-appearing solid mass, located 5 cm from the ni pple. IMPRESSION: ACR-BI-RADS CATEGORY 3: PROBABLY BENIGN, TARGETED ULTRASOUND ACR-BI-RADS CATEGORY 3: PRO BABLY BENIGN 1. The newly visualized 6 mm focal asymmetry versus mass in the upper outer posterior right breast i dentified on screening mammography is thought to correlate with a probable cyst on ultrasound, identi fied in the 9:00 axis, 8 cm from the nipple. Given that it does not meet all of the criteria for a s imple cyst, a short interval follow-up right diagnostic tomosynthesis mammogram and repeat ultrasound is recommended to ensure stability in 6 months. 2. At the time of follow-up, repeat targeted ultrasound should also be performed in the 9:30 right b reast, 5 cm from the nipple, for a benign-appearing oval circumscribed 6.3 mm mass centrally seen on ultrasound, and also to reassess a possible cyst versus normal tissue in the 9:30 right breast, 3 cm from the nipple. These results and recommendations were discussed with the patient at the time of the exam. She tenta tively scheduled a follow-up appointment prior to leaving our department. Approximately 10% of breast cancers are not detected with mammography. A negative mammographic report should not delay biopsy if a clinically suggestive mass is present. Becky Barone M.D. ay/:12/02/2017 12:36:47 Site Operations Manager: Gabi ANDERSON)(M), [facility] letter sent: Follow Up Recommended 3 BI-RADS Code: ACR-BI-RADS Category 3: Probably Benign Ultrasound BI-RADS: ACR-BI-RADS Category 3: Pr obably Benign
== END | disposition home or self-care (01) ==
LOC: C.MAMM 10:05
PROVIDERS: ATTEND Obstetrics & Gynecology
DX: R92.8 Other abnormal and inconclusive findings on diagnostic imaging of breast (principal); N64.89 Other specified disorders of breast

== ENCOUNTER 2023-04-22 05:58 | Observation (INO) ==
--- NOTE | 2023-04-12 15:28 | Anesthesiology Consultation ---
Date of Service April 12, 2023 Assessment & Plan (1) Encounter for pre-operative examination: Chart Review Chart Review: Acceptable Risk for Surgery and Patient NOT seen in Pre Admission Testing -COVID screening: Per PAT nursing assessment on 04/12/23. No known COVID-19 positive contacts or current COVID-19 related symptoms. Travel screen negative. Patient vaccinated for Covid. At surgeon discretion if preop Covid testing being done. History Surgery Operation Date: 04/22/23 07:30 Proposed Procedures p Bilateral Mammoplasty Reduction - Jeanette Viramontes MD Height/Weight Height: 5 ft Weight: 62.596 kg Allergies Allergy/AdvReac Type Severity Reaction Status Date / Time amoxicillin Allergy Unknown RASH Verified 04/12/23 14:47 Medications Home Medications Medication Instructions Recorded Confirmed Last Taken multivitamin 1 tab PO QAM 12/26/19 04/12/23 08/23/22 lactobacillus combo no.11 15 1 cap PO DAILY 04/08/23 04/12/23 Unknown billion cell sprinkle capsule (Probiotic) oxycodone-acetaminophen 5 mg-325 1 tab PO Q4H PRN pain 3 days #18 04/08/23 04/12/23 Unknown mg tablet (Percocet) tabs Past Medical History Medical History Brain bleed reversible cerebral encehalopathy syndrome[place] [facility] [place]7 [place] Concussion 9 years ago, no residual symptoms Hepatitis while in high school-"touch of Hep A w/mononucleosis" History of mononucleosis while in high school Postmenopausal Prolapse of female pelvic organs Vaginal pessary present Past Family History Family History Aunt Breast cancer Maternal Father Cardiovascular disease Mother Diabetes RELATED TO PANCREATITIS Gout Mesothelioma FH: pancreatic cancer Grandfather (Paternal) Heart disease Family/Other IgG myeloma Denies family history of Ovarian cancer Colorectal cancer Past Surgical History Surgical History H/O wisdom tooth extraction History of colonoscopy History of dilation and curettage Social History Smoking Status: Never smoker Do You Dip or Chew Tobacco: No Hx Alcohol Use: Yes alcohol intake frequency: other Alcohol Intake Frequency Comment: hx-none for 7 years Hx Substance Use: No substance use type: does not use Lab Results Anesthesia Preop Results Results Anesthesia Widget: WBC 7.06 K/ul (4.8-10.8) 04/11/23 Hgb 12.1 g/dl (12.0-16.0) 04/11/23 Hct 35.1 % (37.0-47.0) L 04/11/23 Plt 268 K/uL (130-400) 04/11/23 Na 137 mmol/L (136-145) 04/11/23 K 3.7 mmol/L (3.5-5.1) 04/11/23 Cl 106 mmol/L (98-107) 04/11/23 CO2 25 mmol/L (21-32) 04/11/23 BUN 18 mg/dl (6-23) 04/11/23 Creat 0.85 mg/dl (0.6-1.2) 04/11/23 Glucose Level 84 mg/dl (70-99(Fasting)) 04/11/23 PT 10.4 Seconds (9.0-12.0) 04/11/23 INR 0.9 (0.9-1.1) 04/11/23 Testing Electrocardiogram Date: 04/11/23 Findings: + NSR @ (61bpm) Low voltage QRS Cannot rule out inferior infarct, age undetermined Nonspecific T wave abnormality When compared to EKG from Nov 22, 2016- nonspecific T wave abnormality no longer evident in inferior leads, T wave inversion no longer evident in anterior leads per cardio
[2023-04-22] MEDS ORDERED: LACTATED RINGER'S 1,000 ML IV SCH (06:00)
[2023-04-22] MEDS ORDERED: CLINDA 900 MG **Premixed Bag IV SCH (06:00)
[2023-04-22] MEDS ORDERED: HYDROmorphone INJ 1 MG/ML SYRINGE IV PRN (06:52)
[2023-04-22] MEDS ORDERED: ATROPINE SULFATE 0.1 MG/ML 10ML SYR IV PRN (06:52)
[2023-04-22] MEDS ORDERED: fentaNYL citrate PF 100 MCG/2 ML VIAL IV PRN (06:52)
[2023-04-22] MEDS ORDERED: ePHEDrine sulfate 50 MG/ML AMP IV PRN (06:52)
[2023-04-22] MEDS ORDERED: ONDANSETRON INJ 2 MG/ML 2 ML VIAL IV PRN ×2 (06:52→12:36)
[2023-04-22] MEDS ORDERED: PROMETHAZINE HCL 6.25 MG in SODIUM CHLORIDE 0.9% 50 ML IV PRN (06:52)
[2023-04-22] MEDS ORDERED: FAMOTIDINE/PF 20 MG/2 ML VIAL IV ONE (06:53)
[2023-04-22] MEDS ORDERED: SCOPOLAMINE 1 MG TDSY TD STA (06:53)
[2023-04-22] MEDS ORDERED: ACETAMINOPHEN 1000 MG/100 ML IV IV ONE (06:53)
--- NOTE | 2023-04-22 06:53 | History & Physical Bridge Note ---
Date of Service April 22, 2023 History & Physical Bridge Note I have examined the patient, reviewed the History & Physical and in the interval since the performance of the History & Physical I have noted the following changes of clinical significance: no changes noted
[2023-04-22] MEDS ORDERED: SCOPOLAMINE 1 MG TDSY TD ONE (06:54)
[2023-04-22] MEDS ORDERED: MIDAZOLAM HCL 1 MG/ML 2ML VIAL ONE (07:05)
[2023-04-22] MEDS ORDERED: fentaNYL citrate PF 100 MCG/2 ML VIAL ONE (07:06)
[2023-04-22] MEDS ORDERED: PROPOFOL IV EMULSION 10 MG/ML 20 ML VIAL IV ONE (07:08)
[2023-04-22] MEDS ORDERED: LIDOCAINE 2% 2 ML VIAL/AMP(20MG/ML) INFIL ONE (07:08)
[2023-04-22] MEDS ORDERED: ONDANSETRON INJ 2 MG/ML 2 ML VIAL ONE (07:08)
[2023-04-22] MEDS ORDERED: DEXAMETHASONE SOD INJ 4 MG/ML VIAL ONE (07:08)
[2023-04-22] MEDS ORDERED: ROCURONIUM BROMIDE 10 MG/ML 5 ML VIAL IV ONE (07:09)
[2023-04-22] MEDS ORDERED: METOCLOPRAMIDE HCL INJ 5 MG/ML 2 ML VIAL ONE (07:09)
[2023-04-22] MEDS ORDERED: LIDOCAINE 1% LOCAL 20 ML VIAL ONE (07:21)
[2023-04-22] MEDS ORDERED: BUPIVACAINE 0.25% PF 30 ML VIAL ONE (07:21)
[2023-04-22] MEDS ORDERED: EPINEPHrine INJ 1 MG/ML AMP ONE (07:22)
[2023-04-22] MEDS ORDERED: ePHEDrine sulfate 50 MG/ML AMP ONE ×2 (07:50→09:11)
[2023-04-22] MEDS ORDERED: HYDROmorphone INJ 2 MG/ML SYR/VIAL ONE (08:08)
[2023-04-22] MEDS ORDERED: diphenhydrAMINE 50 MG/ML VIAL ONE (08:12)
[2023-04-22] MEDS ORDERED: GLYCOPYRROLATE 0.2 MG/ML VIAL ONE (10:14)
[2023-04-22] MEDS ORDERED: NEOSTIGMINE METHYLSULFATE 1 MG/ML 10ML VIAL ONE (10:14)
--- NOTE | 2023-04-22 10:39 | Post Operative Brief Note ---
PG Immediate Post Op with CF Date of Surgery April 22, 2023 Pre & Post Diagnosis Operation Date: 04/22/23 07:30 Pre-Op Diagnosis: Symptomatic Macromastia Bilateral Post-Op Diagnosis: Symptomatic Macromastia Bilateral I identified the patient and participated in the time-out.: Yes Procedure Operation Date: 04/22/23 07:30 Actual Procedures p Bilateral Mammoplasty Reduction(Bilateral) - Jeanette Viramontes MD Surgeon Jeanette Viramontes MD Fish Farmer Brook Kirkpatrick PA-C Estimated Blood Loss 15 Findings Consistent with Post-Op Diagnosis Specimens Specimen Description: A. left breast tissue 420g B. right breast tissue 350g Drains Arnaldo-Hernandes Drain
--- NOTE | 2023-04-22 11:27 | Operative Report ---
PG Post Operative Report Pre & Post Diagnosis Operation Date: 04/22/23 07:30 Pre-Op Diagnosis: Symptomatic Macromastia Bilateral Post-Op Diagnosis: Symptomatic Macromastia Bilateral I identified the patient and participated in the time-out.: Yes Procedure Operation Date: 04/22/23 07:30 Actual Procedures p Bilateral Mammoplasty Reduction(Bilateral) - Jeanette Viramontes MD Surgeon Jeanette Viramontes MD Direct Chill Casting Operator Brook Kirkpatrick PA-C Estimated Blood Loss 15 Findings Consistent with Post-Op Diagnosis Specimens left breast 420 grams, right breast 350 grams Drains JPx2 Anesthesia Type General Complications none Indications back, neck and bilateral shoulder pain secondary to intertrigo Description of Procedure The risks, benefits, and alternatives of the procedure were explained to the patient who agreed and signed consent. She was identified and marked in the preoperative holding area. She was brought to the operating room where she was positioned supine and placed under general anesthesia without incident. Surgical site was prepped and draped sterilely. A time-out procedure was performed. I began with the left side. Markings were reassessed and a 7 cm pedicle was marked. 1% lidocaine with epinephrine was used to anesthetize the planned incisions. A 38 mm cookie cutter was used to circumscribe the nipple-areolar complex. The previously marked [] cm pedicle was incised using a 15 blade scalpel and deepithelialized. I began with the medial dissection of the pedicle using electrocautery. Cautery was used to incise through dermis and breast parenchyma down to the chest wall, taking care not to undermine the pedicle during dissection. A similar procedure was undertaken on the lateral aspect of the pedicle again taking care not to undermine. Lastly, the pedicle was dissected out superiorly using electrocautery and this was carried down to the chest wall as well. I then began with excision of the medial breast tissue followed by lateral aspect of the breast tissue and surrounding keyhole incision. A 15 blade scalpel was used to make the inframammary fold incision and electrocautery was used to deepen the incision through dermis and breast parenchyma. Dissection was then carried superiorly to the level of the superior incision. Superior incision was then incised using a 15 blade scalpel and again dissected using electrocautery. This was undertaken laterally and then around the keyhole portion of the incision. Care was taken to leave some fat on the lateral pectoralis fascia in order to protect the T4 intercostal nerve. Hemostasis was achieved with electrocautery. The specimen was passed off in its entirety for weighing. Additional resection was undertaken from the superior flap in order to facilitate closure of the breast and to provide the best shape. The total resection weight of the left breast was 420 grams. I did not feel I could remove any further tissue at this point due to risk of vascular compromise to the nipple areolar complex and superior flap skin. The wound was irrigated with saline and hemostasis was achieved with electrocautery. 0.25% Marcaine plain was used to anesthetize the incisions as well as the pectoralis fascia. A 15 Liberian Liu drain was brought out through a separate stab incision. The nipple-areolar complex was brought into the keyhole using 2-0 Vicryl deep dermal suture. The wound was closed first in a lateral to mid breast direction and then medial to mid breast direction using 2-0 Vicryl deep dermal sutures. Vertical limb was also approximated using 2-0 Vicryl deep dermals and the nipple-areolar complex was inset using 2-0 Vicryl deep dermal sutures. Next, the superficial dermal layer was closed using 2-0 PDO running Quill suture along the inframammary fold and 3-0 PDS interrupted dermal sutures along the vertical limb and nipple- areolar complex. Lastly 3-0 Monocryl running subcuticular suture was placed. A similar procedure was undertaken on the right side with maximal excision weight of 350 grams. Breasts were symmetric and nipple-areolar complexes were viable bilaterally following wound closure. Dermabond Prineo was applied along the inframammary fold and vertical limb and Dermabond was placed around the nipple-areolar complex. Dry dressings and a surgical bra were placed. The patient was awakened and transferred to recovery room in satisfactory condition. Brook Kirkpatrick PA-C was present and scrubbed throughout the procedure and was instrumental in providing retraction during dissection of the pedicle and assisting in wound closure. I attest to the content of the Intraoperative Record and any orders documented therein. Any exceptions are noted below.
[2023-04-22] MEDS ORDERED: PROMETHAZINE HCL 12.5 MG in SODIUM CHLORIDE 0.9% 50 ML IV PRN (12:36)
[2023-04-22] MEDS ORDERED: LORazepam 0.5 MG TAB PO PRN (12:36)
[2023-04-22] MEDS ORDERED: diphenhydrAMINE Capsule 25 MG CAP PO PRN (12:36)
[2023-04-22] MEDS ORDERED: oxyCODONE/ACETAMINOPHEN 5mg/325mg TAB PO PRN ×2 (12:36)
[2023-04-22] MEDS ORDERED: diphenhydrAMINE 50 MG/ML VIAL IV PRN (12:36)
[2023-04-22] MEDS ORDERED: D5W AND 1/2NSS + 20MEQ KCL 20 MEQ/1,000 ML BAG IV SCH (13:00)
[2023-04-22] MEDS: ACETAMINOPHEN 325 MG TAB PO PRN ×2 (13:40→21:10)
--- NOTE | 2023-04-22 15:32 | Anesthesiology Progress Note ---
Date of Service April 22, 2023 Anesthesia Post Procedure Vital Signs Vital Signs: Temp Pulse Pulse Resp BP Pulse Ox O2 Del Method 04/22/23 14:33 36.4 C L 90 16 113/69 96 Room Air 04/22/23 13:32 36.4 C L 87 16 143/85 H 98 Room Air 04/22/23 13:00 36.7 C 89 16 128/74 93 Room Air 04/22/23 12:36 36.7 C 66 16 151/81 H 93 Room Air 04/22/23 12:15 64 12 131/75 93 Room Air 04/22/23 12:05 36.1 C L 83 20 125/90 94 Room Air 04/22/23 11:55 79 15 149/89 H 97 Room Air 04/22/23 11:45 73 12 138/86 98 Oxymask 04/22/23 11:35 60 11 L 118/67 100 Oxymask 04/22/23 11:25 59 L 12 118/64 100 Oxymask 04/22/23 11:15 60 11 L 118/67 99 Oxymask 04/22/23 11:06 36.3 C L 59 L 14 118/65 98 Oxymask 04/22/23 06:26 61 18 136/81 97 Room Air O2 Flow Rate 04/22/23 14:33 04/22/23 13:32 04/22/23 13:00 04/22/23 12:36 04/22/23 12:15 04/22/23 12:05 04/22/23 11:55 04/22/23 11:45 5 04/22/23 11:35 9 04/22/23 11:25 9 04/22/23 11:15 9 04/22/23 11:06 9 04/22/23 06:26 Transfer of Care Handoff Completed per policy Notes Mental Status: alert / awake / arousable and participated in evaluation Patient Amnestic to Procedure: Yes Nausea / Vomiting: adequately controlled Pain: adequately controlled Airway Patency, RR, SpO2: stable & adequate BP & HR: stable & adequate Hydration State: stable & adequate Anesthetic Complications: no major complications apparent and Pt Satisfied with anesthetic care
[2023-04-22] MEDS: CHECK SCOPOLAMINE PATCH PLACEMENT SCH ×2 (16:18→23:23)
[2023-04-22] MEDS: CLINDAMYCIN/D5W 600 MG/50 ML BAG IV SCH ×2 (16:18→23:23)
[2023-04-23] MEDS: ACETAMINOPHEN 325 MG TAB PO PRN (07:08)
[2023-04-23] MEDS: CLINDAMYCIN/D5W 600 MG/50 ML BAG IV SCH (07:41)
[2023-04-23] MEDS: CHECK SCOPOLAMINE PATCH PLACEMENT SCH (07:41)
[2023-04-23] MEDS ORDERED: MULTIVITAMIN TAB PO SCH (09:00)
--- NOTE | 2023-04-23 09:53 | Surgery Progress Note ---
Date of Service April 23, 2023 Assessment & Plan (1) S/P bilateral breast reduction: Plan: Zeus is POD #1- she is doing very well. Pain is well-controlled with PRN Tylenol. She denies post-op nausea. She tolerated a regular diet for breakfast. Bilateral JUAN DANIEL drains removed today at bedside. Discharge instructions reviewed. She is aware that she is to keep surgical bra and dressings dry and in place until office visit tomorrow at 10:15AM. Return precautions reviewed. She is ok for discharge to home this AM. Admission and Anticipated Discharge Date Admission Date: April 22, 2023 Subjective Zeus is resting in bed with at bedside. She reports that she is feeling well. Her pain is minimal and she has only been using Tylenol as needed. She denies any post-op nausea. Review of Systems Constitutional: no fever and no chills Cardiovascular: no chest pain, no chest pain at rest, no dyspnea and no dyspnea at rest Gastrointestinal: no nausea and no vomiting Physical Exam Physical Exam: On physical exam- surgical bra and dressings dry- some dry bloody drainage from right nipple on exam. No signs of active bleeding on exam. Bilateral drains in place with bloody to serosang drainage. Both drains removed at bedside without issue. Optifoam dressings placed. Surgical bra reattached. Constitutional: WD/WN, vitals as above Respiratory: normal respiratory effort; no respiratory distress and no labored breathing Psychiatric: A+Ox3, euthymic affect Results & Data Vital Signs (Past 12 Hours) Vital Signs Temp Pulse Resp BP Pulse Ox O2 Del Method 04/23/23 07:23 36.6 C 63 16 98/64 L 98 Room Air 04/23/23 04:14 36.6 C 68 16 98/63 L 98 Room Air PG Care Time/CCT Total # of Minutes Spent Total Time Spent with Patient: Total time spent is greater than 50% in coordination of care (as documented) at patient's floor/unit and/or counseling patient: Coding Level of Care Code 34095 Post Operative Follow-Up Diagnoses S/P bilateral breast reduction Z98.890
--- NOTE | 2023-04-23 12:56 | Discharge Summary ---
Date of Service April 23, 2023 Admission HPI Per Admitting Provider Please see admission H & P Admission Exam Per Admitting Provider Please see admission H & P Principal Diagnosis Bilateral Symptomatic Macromastia Discharge Exam On physical exam- surgical bra and dressings dry- some dry bloody drainage from right nipple on exam. No signs of active bleeding on exam. Bilateral drains in place with bloody to serosang drainage. Both drains removed at bedside without issue. Optifoam dressings placed. Surgical bra reattached. Constitutional WD/WN, vitals as above Respiratory normal respiratory effort; no respiratory distress and no labored breathing Psychiatric A+Ox3, euthymic affect Discharge Data Allergies Allergy/AdvReac Type Severity Reaction Status Date / Time amoxicillin Allergy Unknown RASH Verified 04/22/23 06:30 Procedures Performed Operation Date: 04/22/23 07:30 Actual Procedures p Bilateral Mammoplasty Reduction(Bilateral) - Jeanette Viramontes MD Ordered Studies 04/22/23 05:00 US - OR guided needle placemen Routine Hospital Course (1) S/P bilateral breast reduction: Zeus is a 62-year-old female with Bilateral Symptomatic Macromastia. She was taken to the OR and underwent bilateral breast reduction. There were no intraoperative complications. She was taken to recovery and transferred to med/surg for observation. On POD #1, she was feeling a bit sore, but overall doing very well. She was tolerating a regular diet, voiding on her own, and ambulating without issue. On exam, her vitals were stable, incisions were clean, dry, and intact. Bilateral nipple areolar complexes were pink and viable. Drains were removed without issue at bedside and optifoam dressings were placed. Zeus was discharged to home with instructions to follow-up in [facility] office in 1 day. All questions answered and return precautions reviewed. Total Time Total Time Spent Total Time Spent (In Minutes): 10 Discharge Plan Discharge Items Patient Disposition: Home - Self-Care Reason For Visit: Symptomatic Macromastia Discharge Diagnosis: Symptomatic Macromastia Activity: As commented below Non-emergency contact: Surgeon Call non-emergency contact if: you have any medication questions, your pain is not controlled, your temperature is above 101.5, your wound has increased rednes s and your wound has increased drainage Follow-up/Referrals: Jeanette Viramontes MD [Physician] - 04/24/23 10:15 am (APPOINTMENT WITH WAN VELA PA-C) Jennifer Torres MD [Primary Care Provider] - Diet: Regular Addtl Attending Provider Instructions: ACTIVITY RECOMMENDATIONS: __Normal activities X__No bending, lifting or straining __No driving X__Driving allowed when you are off pain medications X_ Walking permitted __You should have help at home for ___ days DRESSINGS: __No dressings required X__Keep dressings dry/in place until first office visit __Remove dressings ___ and leave dressings off __Apply ice ___ days __Remove dressings and reapply garment __Apply antibiotic ointment (Bacitracin, Neosporin, etc) to wounds 3-4 times/day for 10 days BATHING: _X_Keep dressings dry X_Sponge bathing permitted __Showering permitted _X_No swimming, hot tubs or soaking in a tub MEDICATIONS: Resume previous medications unless instructed otherwise by your surgeon. X_Do not use aspirin, Motrin, Advil or Ibuprofen as these may promote bleeding. Please use Tylenol. X__Prescription(s) provided: Prescription for post-op pain medication sent to your pharmacy at your last office visit. Please use as prescribed. SPECIAL CARE INSTRUCTIONS: * It is normal to have a mild fever after surgery. If your temperature is higher than 101.5 degrees F, please call the office at [phone]. * Constipation is a typical side effect of pain medication. An [id number] stool softener will help relieve this. * Leaking around surgical drains may occur and should not cause concern. Sometimes these drains become clogged. If this happens, remove the bulb and milk the clot out of the tube, then replace the bulb. * Drainage from wounds after liposuction is normal and should be expected. Garments will become soiled. You should protect furniture and bedding. This drainage should mostly subside within 2-3 days. Leave garments in place unless instructed to remove them. * If you have unusual drainage from a wound or are concerned you have an infection or have any questions or concerns, please call the office at [phone]. FOLLOW UP VISIT: If not already scheduled, please call the office, , when you return home after surgery to schedule an appointment to be seen in _1__ day. Pending Studies at Discharge: Yes Studies:: Pathology report. Stand-Alone Forms: My [facility] [email or web address], Pain - Opioid Pain Management, Smoking Cessation Medications and DC Order Prescriptions: Continued Probiotic 15 billion cell capsule, sprinkle 1 cap PO DAILY Hold Instructions: SURGERYT Rx Instructions: do not crush/chew/cut; swallow whole OR may open and sprinkle in cold drink/food oxycodone-acetaminophen [Percocet] 5-325 mg tablet 1 tab PO Q4H PRN (Reason: pain) 3 Days Qty: 18 0RF Rx Instructions: Initial therapy. multivitamin Tablet 1 tab PO QAM Hold Instructions: SURGERY Discharge Orders: Discharge Order (Routine); Ordered 04/23/23 Ordered By: Lawanda Joaquin/Other Patient Handouts: Breast Reduction Surgery Admission Data Admit Date/Time: 04/22/23 11:12 Attending Provider: Jeanette Viramontes Admit Provider: Jeanette Viramontes Primary Care Provider: Jennifer Torres Other Interventions: Discharge Summary Assessment (RN) Last Done: 04/23/23 09:55 Coding Level of Care Code 08978 OBS Care - Discharge Diagnoses S/P bilateral breast reduction Z98.890
== END 2023-04-23 10:30 | disposition home or self-care (01) ==
LOC: ASU 05:58 → 3W 05:58